=== PATIENT | female | born 1930 | race Caucasian/White ===

== ENCOUNTER 2017-05-14 15:20 | Emergency (ER) | payer OTHER ==
[~2017-05-14] VITALS: Ht 157.5 cm; Wt 78.2 kg
[~2017-05-14 15:20] MED LIST: ASPIR 8181 M1 PO; CALTRATE 600600 MG PO; DIOVAN HCT 31 TABLET PO; DIOVAN160 MG PO; LASIX10 MG PO; NEXIUM20 MG PO; NORVASC10 MG PO; PLAVIX75 MG PO; TOPROL XL200 MG PO; TOPROL XL50 MG PO; TRAMADOL HCL50 MG PO; TYLENOL WITH C1 EACH PO; VITAMIN D22000 UNIT PO; ZIAC 10/6.251 TABLET PO; ZITHROMAX Z-PA250 MG PO
[2017-05-14 16:23] LABS: HEMATOCRIT 43.8 % (36.0-46.0); MCH 28.7 PG (29.0-34.0); MCHC 32.4 G/DL (30.0-36.0); MCV 88.5 FL (83-99); MEAN PLAT.VOLUME 10.1 uM^3 (9.5-12.4); PLATELET COUNT 217 K/uL (156-360); RBC DIS.WIDTH-CV 13.5 % (11.8-14.6); RBC DIS.WIDTH-SD 43.9 % (39-53); RED BLOOD COUNT 4.95 M/uL (3.80-5.20); WHITE BLOOD COUNT 8.6 K/uL (4.1-10.2)
[2017-05-14 16:39] LABS: CHLORIDE 107 mEq/L (99-109); POTASSIUM 4.1 mEq/L (3.7-5.4); SODIUM 140 mEq/L (136-147)
[2017-05-14 16:41] LABS: GLUCOSE 97 mg/dL (70-99)
[2017-05-14 16:43] LABS: TOTAL BILIRUBIN 0.6 mg/dL (0.0-1.0)
[2017-05-14 16:44] LABS: ALKALINE PHOSPHATASE 55 IU/L (3-129)
[2017-05-14 16:45] LABS: GFR ESTIMATE (CALCULATED) > 59 mL/min/
[2017-05-14 16:45] LABS: ADD MIUA? YES; BILIRUBIN NEGATIVE; BLOOD SMALL; COLOR YELLOW ((YELLOW)); GLUCOSE (STRIP) NEGATIVE; KETONES NEGATIVE; LEUKOCYTES NEGATIVE; NITRITE NEGATIVE; PROTEIN (STRIP) 30; SPECIFIC GRAVITY 1.021 (1.000-1.030); UROBILINOGEN 0.2 MG/DL (0.2-1.0)
[2017-05-14 16:46] LABS: UREA NITROGEN (BUN) 14 mg/dL (9-23)
[2017-05-14 17:00] LABS: BACTERIA RARE /HPF; EPITHELIAL CELLS RARE /HPF; HYALINE CASTS 0-5 /LPF; MUCUS 4+ /LPF; RED BLOOD CELLS 40-50 /HPF (0-5); UCUL ADDED? YES
[2017-05-14 17:06] LABS: ANION GAP 13 MEQ/L (2-14)
[2017-05-14 17:16] LABS: TROP-I INTERPRETATION NEGATIVE; TROPONIN-I < 0.01 ng/mL (0.0-0.30)
[2017-05-14 18:38] VITALS: BP 163/72
== END 2017-05-14 18:43 | disposition home or self-care (01) ==
LOC: EME 15:20
PROVIDERS: Nurse Practitioner Family
DX: I10 Essential (primary) hypertension (principal); R51 Headache; Z86.73 Personal history of transient ischemic attack (TIA), and cerebral infarction without residual deficits; Z88.0 Allergy status to penicillin; Z79.02 Long term (current) use of antithrombotics/antiplatelets
CPT/HCPCS: 70450; 80053; 81003; 84484; 85027; 87086; 93005; 99281; 99285

== ENCOUNTER 2017-06-23 23:26 | Emergency (ER) | payer OTHER ==
[~2017-06-23] VITALS: Ht 157.5 cm; Wt 75.6 kg
[2017-06-24 00:30] LABS: HEMATOCRIT 39.2 % (36.0-46.0); MCH 29.3 PG (29.0-34.0); MCHC 32.9 G/DL (30.0-36.0); MCV 88.9 FL (83-99); MEAN PLAT.VOLUME 9.9 uM^3 (9.5-12.4); PLATELET COUNT 219 K/uL (156-360); RBC DIS.WIDTH-CV 13.5 % (11.8-14.6); RBC DIS.WIDTH-SD 44.2 % (39-53); RED BLOOD COUNT 4.41 M/uL (3.80-5.20); WHITE BLOOD COUNT 6.1 K/uL (4.1-10.2)
[2017-06-24 00:39] LABS: CHLORIDE 101 mEq/L (99-109); POTASSIUM 3.8 mEq/L (3.7-5.4); SODIUM 138 mEq/L (136-147)
[2017-06-24 00:40] LABS: GLUCOSE 110 mg/dL (70-99)
[2017-06-24 00:42] LABS: ANION GAP 11 MEQ/L (2-14)
[2017-06-24 00:44] LABS: GFR ESTIMATE (CALCULATED) > 59 mL/min/
[2017-06-24 00:45] LABS: UREA NITROGEN (BUN) 14 mg/dL (9-23)
[2017-06-24 00:54] LABS: TROP-I INTERPRETATION NEGATIVE; TROPONIN-I < 0.01 ng/mL (0.0-0.30)
[2017-06-24 01:25] VITALS: BP 174/76
== END 2017-06-24 01:28 | disposition home or self-care (01) ==
LOC: EXP 23:26 → EME 23:26 → EXP 06-24 01:28
PROVIDERS: Physician Assistant
DX: I10 Essential (primary) hypertension (principal); Z86.73 Personal history of transient ischemic attack (TIA), and cerebral infarction without residual deficits; Z88.0 Allergy status to penicillin; Z79.02 Long term (current) use of antithrombotics/antiplatelets; Z79.82 Long term (current) use of aspirin
CPT/HCPCS: 80048; 84484; 85027; 93005; 99281; 99283

== ENCOUNTER 2017-06-26 00:24 | Emergency (ER) | payer OTHER ==
[~2017-06-26] VITALS: Ht 157.5 cm; Wt 75.1 kg
[2017-06-26 01:12] LABS: HEMATOCRIT 42.3 % (36.0-46.0); MCH 28.7 PG (29.0-34.0); MCHC 32.4 G/DL (30.0-36.0); MCV 88.7 FL (83-99); MEAN PLAT.VOLUME 9.6 uM^3 (9.5-12.4); PLATELET COUNT 234 K/uL (156-360); RBC DIS.WIDTH-CV 13.5 % (11.8-14.6); RBC DIS.WIDTH-SD 44.2 % (39-53); RED BLOOD COUNT 4.77 M/uL (3.80-5.20)
[2017-06-26 01:23] LABS: CHLORIDE 102 mEq/L (99-109); POTASSIUM 3.9 mEq/L (3.7-5.4); SODIUM 141 mEq/L (136-147)
[2017-06-26 01:25] LABS: GLUCOSE 104 mg/dL (70-99)
[2017-06-26 01:26] LABS: ANION GAP 12 MEQ/L (2-14)
[2017-06-26 01:29] LABS: GFR ESTIMATE (CALCULATED) 56 mL/min/; UREA NITROGEN (BUN) 16 mg/dL (9-23)
[2017-06-26 01:43] LABS: TOTAL BILIRUBIN 0.3 mg/dL (0.0-1.0)
[2017-06-26 01:44] LABS: ALKALINE PHOSPHATASE 53 IU/L (3-129)
[2017-06-26 01:46] LABS: DIRECT BILIRUBIN 0.2 mg/dL (0.0-0.3)
[2017-06-26 01:51] LABS: TROP-I INTERPRETATION NEGATIVE; TROPONIN-I < 0.01 ng/mL (0.0-0.30)
[2017-06-26 05:22] VITALS: BP 169/70
== END 2017-06-26 05:25 | disposition home or self-care (01) ==
LOC: EME 00:24
PROVIDERS: Emergency Medicine
DX: R51 Headache (principal); I10 Essential (primary) hypertension; Z86.73 Personal history of transient ischemic attack (TIA), and cerebral infarction without residual deficits; Z79.82 Long term (current) use of aspirin; Z79.02 Long term (current) use of antithrombotics/antiplatelets
CPT/HCPCS: 70450; 71020; 80048; 80076; 84484; 85027; 93005; 99281; 99284; J1200; J2765

== ENCOUNTER 2017-07-09 00:54 | Observation (INO) | payer OTHER ==
[~2017-07-09] VITALS: Ht 157.5 cm; Wt 76.5 kg
[~2017-07-09 00:54] MED LIST changes: -LASIX10 MG PO; +LASIX20 MG PO
[2017-07-09 02:35] LABS: EOSINOPHIL (%) 1.6 % (0-5); EOSINOPHIL COUNT 0.1 K/uL (0-0.3); HEMATOCRIT 39.8 % (36.0-46.0); IMMATURE GRANULOCYTE (%) 0.2 % (0.0-0.7); INSTRUMENT ABS NEUTROPHIL CT 5.5 K/uL; LYMPHOCYTE COUNT 1.6 K/uL (1.0-2.8); MCH 28.6 PG (29.0-34.0); MCHC 32.2 G/DL (30.0-36.0); MEAN PLAT.VOLUME 10.4 uM^3 (9.5-12.4); MONOCYTE (%) 11.9 % (3-12); NEUTROPHIL (%) 66.8 % (45-76); NEUTROPHIL COUNT 5.5 K/uL (1.8-6.4); PLATELET COUNT 184 K/uL (156-360); RBC DIS.WIDTH-CV 13.7 % (11.8-14.6); RBC DIS.WIDTH-SD 44.7 % (39-53); RED BLOOD COUNT 4.47 M/uL (3.80-5.20); WHITE BLOOD COUNT 8.3 K/uL (4.1-10.2)
[2017-07-09 02:43] LABS: CHLORIDE 107 mEq/L (99-109); POTASSIUM 4.1 mEq/L (3.7-5.4); SODIUM 140 mEq/L (136-147)
[2017-07-09 02:44] LABS: GLUCOSE 110 mg/dL (70-99)
[2017-07-09 02:46] LABS: ANION GAP 8 MEQ/L (2-14)
[2017-07-09 02:48] LABS: GFR ESTIMATE (CALCULATED) 50 mL/min/
[2017-07-09 02:49] LABS: UREA NITROGEN (BUN) 15 mg/dL (9-23)
[2017-07-09 02:56] LABS: TROP-I INTERPRETATION NEGATIVE; TROPONIN-I < 0.01 ng/mL (0.0-0.30)
[2017-07-09] MEDS ORDERED: CLONIDINE HCL0.1 MG PO (03:07)
[2017-07-09] MEDS ORDERED: METOPROLOL TART50 MG PO (04:09)
[2017-07-09] MEDS ORDERED: CATAPRES0.1 MG PO (04:09)
[2017-07-09 06:12] VITALS: BP 213/67
[2017-07-09 07:19] VITALS: BP 141/66
[2017-07-09 09:05] LABS: TROP-I INTERPRETATION NEGATIVE; TROPONIN-I < 0.01 ng/mL (0.0-0.30)
[2017-07-09 12:11] VITALS: BP 170/75
[2017-07-09 15:18] LABS: TROP-I INTERPRETATION NEGATIVE; TROPONIN-I 0.02 ng/mL (0.0-0.30)
[2017-07-09 16:01] VITALS: BP 164/87
[2017-07-09 20:03] VITALS: BP 159/70
[2017-07-10] VITALS (8 sets, daily range): BP systolic 119–191; BP diastolic 70–82
[2017-07-10 05:23] LABS: BASOPHIL COUNT 0.1 K/uL (0-0.1); EOSINOPHIL (%) 2.5 % (0-5); EOSINOPHIL COUNT 0.2 K/uL (0-0.3); HEMATOCRIT 38.6 % (36.0-46.0); IMMATURE GRANULOCYTE (%) 0.2 % (0.0-0.7); INSTRUMENT ABS NEUTROPHIL CT 3.5 K/uL; LYMPHOCYTE COUNT 1.9 K/uL (1.0-2.8); MCH 28.5 PG (29.0-34.0); MCHC 31.6 G/DL (30.0-36.0); MCV 90.2 FL (83-99); MEAN PLAT.VOLUME 10.3 uM^3 (9.5-12.4); MONOCYTE (%) 12.8 % (3-12); MONOCYTE COUNT 0.8 K/uL (0-0.8); NEUTROPHIL (%) 53.8 % (45-76); NEUTROPHIL COUNT 3.5 K/uL (1.8-6.4); PLATELET COUNT 178 K/uL (156-360); RBC DIS.WIDTH-SD 46.5 % (39-53); RED BLOOD COUNT 4.28 M/uL (3.80-5.20); WHITE BLOOD COUNT 6.5 K/uL (4.1-10.2)
[2017-07-10 06:51] LABS: ALKALINE PHOSPHATASE 38 IU/L (3-129); CHLORIDE 105 MEQ/L (99-109); GFR ESTIMATE (CALCULATED) > 59 mL/min/; GLUCOSE 94 mg/dL (70-99); POTASSIUM 4.1 MEQ/L (3.7-5.4); SODIUM 140 MEQ/L (136-147); TOTAL BILIRUBIN 0.6 MG/DL (0.0-1.0); UREA NITROGEN (BUN) 12 mg/dL (9-23)
[2017-07-10] MEDS ORDERED: CLONIDINE HCL0.1 MG PO (16:20)
[2017-07-10] MEDS ORDERED: AMLODIPINE BESYL5 MG PO (16:21)
[2017-07-11] MEDS ORDERED: CLONIDINE HCL0.1 MG PO (10:44)
[2017-07-11] MEDS ORDERED: NORVASC5 MG PO (10:44)
== END 2017-07-10 17:24 | disposition home or self-care (01) ==
LOC: EME 00:54 → EDOF 04:01 → 5WEST 04:01 → ENRESERV 04:05 → 5WEST 06:01
PROVIDERS: Emergency Medicine; Physician Assistant
DX: I10 Essential (primary) hypertension (principal); R26.89 Other abnormalities of gait and mobility; Z86.73 Personal history of transient ischemic attack (TIA), and cerebral infarction without residual deficits; R51 Headache; K21.9 Gastro-esophageal reflux disease without esophagitis; K44.9 Diaphragmatic hernia without obstruction or gangrene; Z90.49 Acquired absence of other specified parts of digestive tract; Z90.710 Acquired absence of both cervix and uterus; Z82.3 Family history of stroke; Z82.49 Family history of ischemic heart disease and other diseases of the circulatory system; Z83.3 Family history of diabetes mellitus; Z88.0 Allergy status to penicillin; Z88.2 Allergy status to sulfonamides; Z91.041 Radiographic dye allergy status; Z79.82 Long term (current) use of aspirin; Z79.02 Long term (current) use of antithrombotics/antiplatelets
CPT/HCPCS: 70450; 70544; 70551; 76770; 80048; 80053; 84484; 85025; 85027; 93005; 93975; 99281; 99284; G0378; J0360; J1650

== ENCOUNTER 2017-07-10 19:59 | Inpatient (IN) | payer OTHER ==
[~2017-07-10] VITALS: Ht 157.5 cm; Wt 74.5 kg
[~2017-07-10 19:59] MED LIST changes: +AMLODIPINE BESYL5 MG PO; +CATAPRES0.1 MG PO; +CLONIDINE HCL0.1 MG PO; +METOPROLOL TART50 MG PO
[2017-07-10 20:43] LABS: HEMATOCRIT 40.1 % (36.0-46.0); MCHC 32.4 G/DL (30.0-36.0); MCV 89.3 FL (83-99); PLATELET COUNT 176 K/uL (156-360); RBC DIS.WIDTH-CV 13.9 % (11.8-14.6); RBC DIS.WIDTH-SD 45.2 % (39-53); RED BLOOD COUNT 4.49 M/uL (3.80-5.20); WHITE BLOOD COUNT 7.4 K/uL (4.1-10.2)
[2017-07-10 20:55] LABS: CHLORIDE 101 mEq/L (99-109); POTASSIUM 3.9 mEq/L (3.7-5.4); SODIUM 135 mEq/L (136-147)
[2017-07-10 20:57] LABS: GLUCOSE 98 mg/dL (70-99)
[2017-07-10 20:58] LABS: ANION GAP 8 MEQ/L (2-14)
[2017-07-10 21:01] LABS: GFR ESTIMATE (CALCULATED) > 59 mL/min/
[2017-07-10 21:02] LABS: UREA NITROGEN (BUN) 14 mg/dL (9-23)
[2017-07-10 21:45] LABS: TROP-I INTERPRETATION NEGATIVE; TROPONIN-I < 0.01 ng/mL (0.0-0.30)
[2017-07-10 23:34] VITALS: BP 180/88
[2017-07-11] VITALS (8 sets, daily range): BP systolic 106–179; BP diastolic 55–84
[2017-07-11] MEDS ORDERED: NORVASC5 MG PO (10:44)
[2017-07-11] MEDS ORDERED: CLONIDINE HCL0.1 MG PO (10:44)
[2017-07-11 15:44] LABS: ADD MIUA? NO; BILIRUBIN NEGATIVE; BLOOD NEGATIVE; COLOR YELLOW ((YELLOW)); GLUCOSE (STRIP) NEGATIVE; KETONES NEGATIVE; LEUKOCYTES NEGATIVE; NITRITE NEGATIVE; PROTEIN (STRIP) NEGATIVE; UROBILINOGEN 0.2 MG/DL (0.2-1.0)
[2017-07-11 16:10] LABS: UR CREATININE CONCENTRATION 73.7 MG/DL
[2017-07-12] VITALS (8 sets, daily range): BP systolic 132–206; BP diastolic 61–91
[2017-07-12 09:02] LABS: ALKALINE PHOSPHATASE 46 IU/L (3-129); ANION GAP 6 MEQ/L (2-14); CHLORIDE 108 MEQ/L (99-109); DIRECT BILIRUBIN 0.1 mg/dL (0.0-0.3); GFR ESTIMATE (CALCULATED) > 59 mL/min/; GLUCOSE 89 mg/dL (70-99); POTASSIUM 4.2 MEQ/L (3.7-5.4); SAMPLE HEMOLYSIS CHECK 0; SAMPLE ICTERIC CHECK 0; SAMPLE LIPEMIA CHECK 0; SODIUM 141 MEQ/L (136-147); TOTAL BILIRUBIN 0.6 MG/DL (0.0-1.0); UREA NITROGEN (BUN) 12 mg/dL (9-23)
[2017-07-12 09:17] LABS: LIPASE 17 U/L (1.0-51.0)
[2017-07-13 03:45] VITALS: BP 135/65
[2017-07-13 06:24] LABS: ANION GAP 6 MEQ/L (2-14); CHLORIDE 107 MEQ/L (99-109); GFR ESTIMATE (CALCULATED) > 59 mL/min/; GLUCOSE 90 mg/dL (70-99); POTASSIUM 4.1 MEQ/L (3.7-5.4); SAMPLE HEMOLYSIS CHECK 0; SAMPLE ICTERIC CHECK 0; SAMPLE LIPEMIA CHECK 0; SODIUM 141 MEQ/L (136-147); UREA NITROGEN (BUN) 11 mg/dL (9-23)
[2017-07-13 07:37] VITALS: BP 149/63
[2017-07-13] MEDS ORDERED: LISINOPRIL5 MG PO (11:41)
[2017-07-13] MEDS ORDERED: METOPROLOL TART25 MG PO (11:43)
[2017-07-13 12:16] VITALS: BP 186/81
== END 2017-07-13 15:00 | disposition home health service (06) | DRG 312 ==
LOC: EME → EDBD 19:59 → EME 19:59 → 5WEST 22:28 → EDOF 22:28 → ENRESERV 22:31 → 5WEST 23:10 → ENRESERV 07-11 15:51 → CANRESERV 07-11 23:30 → ENPENDDIS 07-13 → 5WEST 07-13 15:00
PROVIDERS: Internal Medicine
DX: I95.1 Orthostatic hypotension (principal); E87.1 Hypo-osmolality and hyponatremia; E86.0 Dehydration; I16.0 Hypertensive urgency; I15.0 Renovascular hypertension; I70.1 Atherosclerosis of renal artery; K86.2 Cyst of pancreas; K86.89 Other specified diseases of pancreas; I45.10 Unspecified right bundle-branch block; R11.0 Nausea; K21.9 Gastro-esophageal reflux disease without esophagitis; K44.9 Diaphragmatic hernia without obstruction or gangrene; E78.5 Hyperlipidemia, unspecified; K57.90 Diverticulosis of intestine, part unspecified, without perforation or abscess without bleeding; R21 Rash and other nonspecific skin eruption; R26.89 Other abnormalities of gait and mobility; E66.9 Obesity, unspecified; Z68.30 Body mass index [BMI] 30.0-30.9, adult; Z79.82 Long term (current) use of aspirin; Z79.02 Long term (current) use of antithrombotics/antiplatelets; Z82.49 Family history of ischemic heart disease and other diseases of the circulatory system; Z83.3 Family history of diabetes mellitus; Z86.73 Personal history of transient ischemic attack (TIA), and cerebral infarction without residual deficits
CPT/HCPCS: 71020; 74185; 80048; 80076; 81003; 82043; 82088 90; 82570; 83690; 84244 90; 84484; 85027; 93005; 99281; 99285; G0378; J1644; J7030; J7040

== ENCOUNTER 2017-12-01 14:54 | Inpatient (IN) | payer OTHER ==
[~2017-12-01] VITALS: Ht 157.5 cm; Wt 70.2 kg
[~2017-12-01 14:54] MED LIST changes: +LISINOPRIL5 MG PO; +METOPROLOL TART25 MG PO
[2017-12-01 18:18] LABS: HEMATOCRIT 38.2 % (36.0-46.0); HEMOGLOBIN 12.5 G/DL (11.9-15.5); MCH 29.7 PG (29.0-34.0); MCHC 32.7 G/DL (30.0-36.0); MCV 90.7 FL (83-99); PLATELET COUNT 429 K/uL (156-360); RBC DIS.WIDTH-CV 13.5 % (11.8-14.6); RBC DIS.WIDTH-SD 45.1 % (39-53); RED BLOOD COUNT 4.21 M/uL (3.80-5.20); WHITE BLOOD COUNT 12.6 K/uL (4.1-10.2)
[2017-12-01 18:24] LABS: INTER. NORMALIZED RATIO 1.2
[2017-12-01 18:30] LABS: CHLORIDE 102 mEq/L (99-109); SODIUM 136 mEq/L (136-147)
[2017-12-01 18:31] LABS: GLUCOSE 122 mg/dL (70-99)
[2017-12-01 18:35] LABS: CREATININE 0.8 mg/dL (0.6-1.3); GFR ESTIMATE (CALCULATED) > 59 mL/min/
[2017-12-01 18:36] LABS: UREA NITROGEN (BUN) 14 mg/dL (9-23)
[2017-12-01 20:13] LABS: PTT 27.6 SEC (25-37)
[2017-12-01] MEDS ORDERED: PRINIVIL5 MG PO (21:15)
[2017-12-01] MEDS ORDERED: LOPRESSOR25 MG PO (21:16)
[2017-12-02 04:18] VITALS: BP 147/69
[2017-12-02 07:00] VITALS: BP 145/69
[2017-12-02 07:49] LABS: BASOPHIL (%) 0.6 % (0-1); BASOPHIL COUNT 0.1 K/uL (0-0.1); EOSINOPHIL (%) 1.6 % (0-5); EOSINOPHIL COUNT 0.1 K/uL (0-0.3); HEMATOCRIT 32.3 % (36.0-46.0); HEMOGLOBIN 10.5 G/DL (11.9-15.5); IMMATURE GRANULOCYTE (%) 0.6 % (0.0-0.7); LYMPHOCYTE (%) 18.8 % (15-42); LYMPHOCYTE COUNT 1.6 K/uL (1.0-2.8); MCH 29.2 PG (29.0-34.0); MCHC 32.5 G/DL (30.0-36.0); MCV 89.7 FL (83-99); MONOCYTE (%) 12.5 % (3-12); MONOCYTE COUNT 1.1 K/uL (0-0.8); NEUTROPHIL (%) 65.9 % (45-76); NEUTROPHIL COUNT 5.6 K/uL (1.8-6.4); PLATELET COUNT 324 K/uL (156-360); RBC DIS.WIDTH-CV 13.5 % (11.8-14.6); RBC DIS.WIDTH-SD 44.5 % (39-53); WHITE BLOOD COUNT 8.5 K/uL (4.1-10.2)
[2017-12-02 08:04] LABS: CHLORIDE 105 MEQ/L (99-109); CREATININE 0.7 MG/DL (0.6-1.3); GFR ESTIMATE (CALCULATED) > 59 mL/min/; GLUCOSE 97 mg/dL (70-99); POTASSIUM 4.1 MEQ/L (3.7-5.4); SODIUM 142 MEQ/L (136-147); UREA NITROGEN (BUN) 10 mg/dL (9-23)
[2017-12-02 16:25] VITALS: BP 130/59
[2017-12-02 21:00] VITALS: BP 141/64
[2017-12-02 23:30] VITALS: BP 118/57
[2017-12-03 06:31] LABS: HEMATOCRIT 32.3 % (36.0-46.0); HEMOGLOBIN 10.2 G/DL (11.9-15.5); MCH 28.7 PG (29.0-34.0); MCHC 31.6 G/DL (30.0-36.0); MCV 90.7 FL (83-99); PLATELET COUNT 328 K/uL (156-360); RBC DIS.WIDTH-CV 13.6 % (11.8-14.6); RBC DIS.WIDTH-SD 45.4 % (39-53); RED BLOOD COUNT 3.56 M/uL (3.80-5.20); WHITE BLOOD COUNT 7.9 K/uL (4.1-10.2)
[2017-12-03 06:55] LABS: CHLORIDE 104 MEQ/L (99-109); CREATININE 0.9 MG/DL (0.6-1.3); GFR ESTIMATE (CALCULATED) > 59 mL/min/; GLUCOSE 102 mg/dL (70-99); POTASSIUM 4.4 MEQ/L (3.7-5.4); SODIUM 140 MEQ/L (136-147); UREA NITROGEN (BUN) 13 mg/dL (9-23)
[2017-12-03 07:57] VITALS: BP 136/63
[2017-12-03 16:33] VITALS: BP 149/69
[2017-12-03 23:50] VITALS: BP 154/70
[2017-12-04 07:01] LABS: HEMATOCRIT 32.9 % (36.0-46.0); HEMOGLOBIN 10.6 G/DL (11.9-15.5); MCH 28.9 PG (29.0-34.0); MCHC 32.2 G/DL (30.0-36.0); MCV 89.6 FL (83-99); PLATELET COUNT 294 K/uL (156-360); RBC DIS.WIDTH-CV 13.6 % (11.8-14.6); RBC DIS.WIDTH-SD 44.7 % (39-53); RED BLOOD COUNT 3.67 M/uL (3.80-5.20); WHITE BLOOD COUNT 7.5 K/uL (4.1-10.2)
[2017-12-04 07:27] LABS: CHLORIDE 106 MEQ/L (99-109); CREATININE 0.8 MG/DL (0.6-1.3); GFR ESTIMATE (CALCULATED) > 59 mL/min/; GLUCOSE 95 mg/dL (70-99); SODIUM 140 MEQ/L (136-147); UREA NITROGEN (BUN) 9 mg/dL (9-23)
[2017-12-04 07:44] VITALS: BP 136/62
[2017-12-04] MEDS ORDERED: CIPRO500 MG PO (11:59)
[2017-12-04 15:41] VITALS: BP 141/65
[2017-12-04 23:59] VITALS: BP 136/65
[2017-12-05 06:19] LABS: BASOPHIL (%) 0.7 % (0-1); BASOPHIL COUNT 0.1 K/uL (0-0.1); EOSINOPHIL (%) 3.1 % (0-5); EOSINOPHIL COUNT 0.3 K/uL (0-0.3); HEMATOCRIT 32.9 % (36.0-46.0); HEMOGLOBIN 10.4 G/DL (11.9-15.5); LYMPHOCYTE COUNT 1.8 K/uL (1.0-2.8); MCH 28.5 PG (29.0-34.0); MCHC 31.6 G/DL (30.0-36.0); MCV 90.1 FL (83-99); MONOCYTE (%) 11.4 % (3-12); NEUTROPHIL (%) 62.8 % (45-76); NEUTROPHIL COUNT 5.3 K/uL (1.8-6.4); PLATELET COUNT 289 K/uL (156-360); RBC DIS.WIDTH-CV 13.6 % (11.8-14.6); RED BLOOD COUNT 3.65 M/uL (3.80-5.20); WHITE BLOOD COUNT 8.4 K/uL (4.1-10.2)
[2017-12-05 06:45] VITALS: BP 135/64
[2017-12-05 06:57] LABS: CHLORIDE 107 MEQ/L (99-109); CREATININE 0.7 MG/DL (0.6-1.3); GFR ESTIMATE (CALCULATED) > 59 mL/min/; GLUCOSE 97 mg/dL (70-99); SODIUM 140 MEQ/L (136-147); UREA NITROGEN (BUN) 11 mg/dL (9-23)
[2017-12-05] MEDS ORDERED: SANTYL30 GM TP (10:24)
== END 2017-12-05 13:30 | disposition home health service (06) | DRG 571 ==
LOC: EME 14:54 → 5EAST 21:18 → EDOF 21:18 → ENRESERV 21:23 → CANRESERV 22:51 → ENRESERV 22:51 → EDOF 12-02 00:20 → 5EAST 12-02 03:41
PROVIDERS: Hospitalist; Nurse Practitioner Adult Health; Physician Assistant
PROC: 0JBN0ZZ Excision of Right Lower Leg Subcutaneous Tissue and Fascia, Open Approach (ICD-10-PCS; principal; 2017-12-03)
DX: L03.115 Cellulitis of right lower limb (principal); L97.211 Non-pressure chronic ulcer of right calf limited to breakdown of skin; A28.0 Pasteurellosis; S80.12XA Contusion of left lower leg, initial encounter; W06.XXXA Fall from bed, initial encounter; R26.9 Unspecified abnormalities of gait and mobility; I10 Essential (primary) hypertension; I70.1 Atherosclerosis of renal artery; W01.0XXA Fall on same level from slipping, tripping and stumbling without subsequent striking against object, initial encounter; Z91.81 History of falling; W54.0XXA Bitten by dog, initial encounter; Y92.003 Bedroom of unspecified non-institutional (private) residence as the place of occurrence of the external cause; Z79.02 Long term (current) use of antithrombotics/antiplatelets; Z79.82 Long term (current) use of aspirin; Z86.73 Personal history of transient ischemic attack (TIA), and cerebral infarction without residual deficits
CPT/HCPCS: 73590; 80048; 83605; 85025; 85027; 85610; 85730; 85730 GA; 87040; 87070; 87075; 87076; 87077; 87185; 87205; 93970; 99281; 99285; A6260; J0696; J1650; J3370; J7030

== ENCOUNTER → 2018-02-11 | Outpatient (CLI) | payer OTHER ==
[~2018-02-11] VITALS: Ht 157.5 cm; Wt 69.8 kg
[~2018-02-11] MED LIST changes: +CIPRO500 MG PO; +LOPRESSOR25 MG PO; +MIRALAX17 GM PO; +PRINIVIL5 MG PO; +SANTYL30 GM TP; +WOMEN'S DAILY1 EAC2 PO
[2018-02-11 13:03] LABS: HEMATOCRIT 43.5 % (36.0-46.0); MCV 87.7 FL (83-99)
== END | disposition home or self-care (01) ==
LOC: AMB 12:02
PROVIDERS: Anesthesiology
DX: R63.4 Abnormal weight loss (principal); K63.5 Polyp of colon; D12.2 Benign neoplasm of ascending colon; D12.5 Benign neoplasm of sigmoid colon; D12.3 Benign neoplasm of transverse colon; K62.1 Rectal polyp; K57.30 Diverticulosis of large intestine without perforation or abscess without bleeding; K64.8 Other hemorrhoids; K59.00 Constipation, unspecified; Z86.010 Personal history of colon polyps; M19.90 Unspecified osteoarthritis, unspecified site; R73.01 Impaired fasting glucose; E66.01 Morbid (severe) obesity due to excess calories; Z68.28 Body mass index [BMI] 28.0-28.9, adult; Z86.19 Personal history of other infectious and parasitic diseases; I70.1 Atherosclerosis of renal artery; I10 Essential (primary) hypertension; Z85.828 Personal history of other malignant neoplasm of skin; Z86.73 Personal history of transient ischemic attack (TIA), and cerebral infarction without residual deficits; Z82.49 Family history of ischemic heart disease and other diseases of the circulatory system; Z83.3 Family history of diabetes mellitus; Z79.82 Long term (current) use of aspirin; Z88.0 Allergy status to penicillin; Z88.2 Allergy status to sulfonamides; Z91.048 Other nonmedicinal substance allergy status
CPT/HCPCS: 85014; 85018; 88305; 93005